=== PATIENT | female | born 2000 | race Two or more races ===

== ENCOUNTER 2022-04-29 19:38 | Emergency (ER) | payer MEDICAID, OTHER ==
[~2022-04-29] VITALS: Ht 157.5 cm; Wt 100.0 kg
[2022-04-29 19:38] VITALS: BP 137/75
[2022-04-29] MEDS ORDERED: ALBUTEROL SULF 2.5 MG/0.5ML(0.5%) NEB SOLN NEB ONE (20:45)
[2022-04-29] MEDS ORDERED: MONT-8 PO (21:34)
[2022-04-29] MEDS ORDERED: ALBU108A5 IN (21:34)
== END 2022-04-29 21:44 | disposition home or self-care (01) ==
LOC: ER 19:38
DX: J45.909 Unspecified asthma, uncomplicated (principal)
CPT/HCPCS: 94640